=== PATIENT | female | born 1995 | race African-American/Black ===

== ENCOUNTER 2017-07-10 02:12 | Emergency (ER) | payer OTHER ==
[~2017-07-10] VITALS: Ht 152.4 cm; Wt 43.1 kg
[2017-07-10 02:30] VITALS: BP 101/71
--- NOTE | 2017-07-10 02:32 | Emergency Room Report ---
History of Present Illness General Chief Complaint: Abdominal Pain Source: Patient Present Illness HPI Is a 22-year-old female with no past medical history. She is A1. She presents with chief complaint of cramping pelvic pain. She just found out that she was 4 days ago with a urine test. She had a very short period in May. None this month. Usually come in the middle of the month. No bleeding. We're discharge. No nausea no vomiting. No fever chills. No urinary complaint. Allergies: Coded Allergies: No Known Allergies (Unverified , 07/10/17) Patient History Past Medical History: none, see triage record, old chart reviewed Past Surgical History: none Pertinent Family History: none Social History: Denies: smoking Last Menstrual Period: "In May" Now: Yes - Positive preg. test at home Immunizations: other Reviewed Nursing Documentation: PMH: Agreed; PSxH: Agreed Nursing Documentation-PMH Past Medical History: No History, Except For Hx Neurological Problems: No - Ovarian cyst (removed in 2015) Review of Systems Eye: Denies: eye pain, blurred vision ENT: Denies: ear pain, nose congestion, throat swelling Respiratory: Denies: cough, shortness of breath Cardiovascular: Denies: chest pain, palpitations Gastrointestinal: Reports: abdominal pain; Denies: diarrhea, nausea, vomiting Musculoskeletal: Denies: back pain, joint pain Skin: Denies: rash Neurological: Denies: headache, numbness Endocrine: Denies: increased thirst, increased urine Hematologic/Lymphatic: Denies: easy bruising All Other Systems: negative except mentioned in HPI Physical Exam Vital Signs Date Time Temp Pulse Resp B/P (MAP) Pulse Ox O2 Delivery O2 Flow Rate FiO2 07/10/17 02:15 98.1 87 16 98/59 97 Room Air 98.1 vitals normal Sp02 EP Interpretation: reviewed, normal General Appearance: well appearing, no apparent distress, alert Head: normocephalic, atraumatic Eyes: bilateral eye PERRL, bilateral eye EOMI ENT: hearing grossly normal, normal pharynx Neck: full range of motion, supple, no meningismus Respiratory: chest non-tender, lungs clear, normal breath sounds Cardiovascular #1: regular rate, rhythm, no murmur Gastrointestinal: normal bowel sounds, non tender, no mass, no organomegaly, no bruit, non-distended Genitourinary: other - 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 External exam normal. Internal exam show whitish discharge. No cervical motion tenderness. No adnexal tenderness. Musculoskeletal: back normal, gait/station normal, normal range of motion Psychiatric: mood/affect normal Skin: warm/dry Medical Decision Making Diagnostic Impression: Primary Impression: Threatened Additional Impression: Trichomonas vaginitis ER Course Patient presents with and first trimester with Trichomonas infection. Transabdominal ultrasound showed a gestational sac. Unable to see any heart tone. Patient said that she has an appointment tomorrow for pelvic ultrasound. I see no evidence of ectopic on this patient. We'll go ahead and treat her Trichomonas infection. No evidence of UTI. Last Vital Signs Date Time Temp Pulse Resp B/P (MAP) Pulse Ox O2 Delivery O2 Flow Rate FiO2 07/10/17 02:15 98.1 87 16 98/59 97 Room Air 98.1 Status: improved Disposition: HOME, SELF-CARE Condition: Stable Additional Instructions: Keep your appointment for vaginal ultrasound as scheduled. Have your partner treated also. Take vitamins. Return if symptom worsen. JUSTIN LYNN M.D. Jul 10, 2017 02:32
[2017-07-10 03:27] LABS: APPEARANCE,URINE CLOUDY; BILIRUBIN, URINE NEGATIVE (NEGATIVE); COLOR,URINE YELLOW; GLUCOSE, URINE (UA) NEGATIVE (NEGATIVE); KETONES,URINE NEGATIVE (NEGATIVE); LEUKOCYTE ESTERASE ,URINE 3+ (NEGATIVE); NITRITE,URINE NEGATIVE (NEGATIVE); PH,URINE 6 (4.5-8.0); PROTEIN,URINE 1+ (NEGATIVE); UROBILINOGEN,URINE NORMAL MG/DL (0.0-1.0)
[2017-07-10] MEDS ORDERED: metroNIDAZOLE 500mg tab ORAL ONE (03:45)
[2017-07-10 03:59] VITALS: BP_SYST 101; BP_SYST 103; BP_DIAS 61; BP_DIAS 71
== END 2017-07-10 04:00 | disposition home or self-care (01) ==
LOC: EMR 02:35
DX: O20.0 Threatened abortion (principal); Z3A.00 Weeks of gestation of pregnancy not specified; O98.311 Other infections with a predominantly sexual mode of transmission complicating pregnancy, first trimester; A59.01 Trichomonal vulvovaginitis
CPT/HCPCS: 36415; 81003; 84702; 87086; 87210; 99282